=== PATIENT | female | born 1935 | race Two or more races ===

== ENCOUNTER 2021-06-03 01:55 | Inpatient (IN) | payer MEDICARE, BC ==
[2021-06-03] VITALS (17 sets, daily range): BP systolic 99–167; BP diastolic 46–115
[~2021-06-03] VITALS: Ht 165.1 cm; Wt 54.0 kg
--- NOTE | 2021-06-03 02:01 | NUR ---
PT AAOX4. BIBRA FROM HOME C/O SOB X2 DAYS. WORST TODAY. NEONATAL DOCTOR, GIVEN 5 PUFFS OF NITRO AND 10MG ALBUTEROL. PLACED IN BED 8 ON STEM PROCESSING MACHINE OPERATOR AND PULSE OX. PT NOTED TACHYPNIC AND TACHYCARDIC. ER MD AT BEDSIDE FOR EVAL AND ORDERS. RT AT BEDSIDE. PT STATED SHE DOES NOT WANT TO BE INTUBATED.
--- NOTE | 2021-06-03 02:13 | NUR ---
LINE ESTABLISHED, BLOOD WORK COLLECTED, SENT TO LAB.
[2021-06-03] MEDS ORDERED: methylPREDNISolone SOD SUCC 125 MG/2ML VIAL ONE (02:16)
--- NOTE | 2021-06-03 02:18 | NUR ---
EMT AT BEDSIDE FOR EKG
--- NOTE | 2021-06-03 02:18 | NUR ---
RT CALLED FOR BIPAP.
[2021-06-03] MEDS ORDERED: ALBUTEROL FS 2.5 MG/3 ML VIAL.NEB ONE (02:20)
[2021-06-03] MEDS ORDERED: ALBUTEROL FS 2.5 MG/0.5 ML VIAL.NEB ONE (02:21)
[2021-06-03 02:30] LABS: BASOPHILS # (AUTO) 0.1 K/uL (0.0-0.2); BASOPHILS % (AUTO) 0.5 % (0.0-2.0); EOSINOPHILS % (AUTO) 2.3 % (0.0-6.0); HEMATOCRIT 43 % (33-45); LYMPHOCYTES # (AUTO) 5.2 K/uL (0.8-4.8); LYMPHOCYTES % (AUTO) 46.1 % (20.0-44.0); MEAN CORPUSCULAR HGB CONC 33 g/dl (31.0-36.0); MEAN CORPUSCULAR VOLUME 95 fL (82-100); MONOCYTES # (AUTO) 0.8 K/uL (0.1-1.30); MONOCYTES % (AUTO) 6.8 % (2.0-12.0); NEUTROPHILS % (AUTO) 44.3 % (43.0-81.0); PLATELET COUNT (AUTO) 192 K/uL (150-450); RED BLOOD CELL COUNT(AUTO) 4.48 MIL/uL (4.0-5.2); WHITE BLOOD COUNT (AUTO) 11.4 K/uL (4.3-11.0)
[2021-06-03] MEDS ORDERED: methylPREDNISolone SOD SUCC 125 MG/2ML VIAL IV ONE (02:30)
[2021-06-03] MEDS ORDERED: IPRATROPIUM NEB FS 0.5 MG/2.5 ML AMPUL.NEB NEB ONE (02:30)
[2021-06-03] MEDS ORDERED: ALBUTEROL FS 2.5 MG/3 ML VIAL.NEB NEB ONE (02:30)
--- NOTE | 2021-06-03 02:47 | NUR ---
FREDRICKID SWABBED, SENT TO LAB.
[2021-06-03] MEDS ORDERED: IOHEXOL-350 100 ML VIAL IV ONE ×2 (02:49→13:43)
[2021-06-03] MEDS ORDERED: CT SWABBABLE VALVE TRANS SET 1 EA INFUS.SET MC ONE ×2 (02:49→13:43)
[2021-06-03] MEDS ORDERED: IV NS 0.9% 250 ML IV ONE ×2 (02:49→13:43)
[2021-06-03 02:52] LABS: BILIRUBIN,TOTAL 0.6 mg/dL (0.2-1.0); CALCIUM, SERUM 8.3 mg/dL (8.5-10.1); CREATININE 0.8 mg/dL (0.6-1.3); MAGNESIUM 2.1 mg/dL (1.8-2.4); POTASSIUM 4.7 mmol/L (3.5-5.1); TOTAL PROTEIN, SERUM 7.1 g/dL (6.4-8.2)
[2021-06-03] MEDS ORDERED: CLOP75TA15 PO (02:56)
[2021-06-03] MEDS ORDERED: AMLO2.5T2 PO (02:57)
[2021-06-03] MEDS ORDERED: SIMV40TA2 PO (02:57)
[2021-06-03] MEDS ORDERED: LABE100T5 PO (02:57)
--- NOTE | 2021-06-03 03:23 | NUR ---
RADIOLOGY UNABLE TO COMPLETE CT SCAN DUE TO PT UNABLE TO STAY LAYING FLAT.
[2021-06-03] MEDS ORDERED: FUROSEMIDE 40 MG/4 ML VIAL ONE (03:28)
[2021-06-03] MEDS ORDERED: ASPIRIN 81 MG TAB.CHEW ONE (03:29)
[2021-06-03] MEDS ORDERED: ASPIRIN 81 MG TAB.CHEW PO ONE (03:30)
[2021-06-03] MEDS ORDERED: FUROSEMIDE 40 MG/4 ML VIAL IV ONE (03:30)
[2021-06-03] MEDS ORDERED: LORAZEPAM INJ 2 MG/ML VIAL ONE (03:52)
--- NOTE | 2021-06-03 03:55 | NUR ---
PT STATED "I WOULD LIKE SOMETHING TO CALM ME DOWN" I DID NOTIFY ER MD, ATIVAN 0.5MG IVP XNOW VERBAL ORDER RECIEVED.
[2021-06-03] MEDS ORDERED: LORAZEPAM INJ 2 MG/ML VIAL IV ONE (04:00)
[2021-06-03 05:04] LABS: BILIRUBIN,URINE Negative (NEGATIVE); COLOR,URINE YELLOW (YELLOW); LEUKOCYTE ESTERASE ,URINE Negative (NEGATIVE); NITRITE, URINE Negative (NEGATIVE); PROTEIN,URINE 100 mg/dl (NEGATIVE); UGLUCOSE Negative (NEGATIVE); UROBILINOGEN,URINE 0.2 EU/dL (0.2)
--- NOTE | 2021-06-03 05:05 | NUR ---
URINE SPECIMEN COLLECTED AND SENT TO LAB
--- NOTE | 2021-06-03 05:09 | NUR ---
PT AAOX4, REMAINS ON BIPAP, ON MONITOR, AND PULSE OX. AWARE SHE WILL BE ADMITTED. RESTING COMFORTABLY.
--- NOTE | 2021-06-03 05:10 | NUR ---
PT WAS ABLE TO URINATE. STATED SHE FEELS BETTER,
--- NOTE | 2021-06-03 05:28 | NUR ---
RT AT BEDSIDE. TOOK PT OFF BIPAP. PT NOW ON 2L NC. SAT 94%
[2021-06-03 05:31] LABS: BACTERIA,URINE None seen /HPF (None Seen); SQUAMOUS EPITHELIAL CELL,UR Few /HPF (None Seen); WBC,URINE 0-2 /HPF (0-3)
--- NOTE | 2021-06-03 05:42 | NUR ---
STAN WOOD TALKING TO XIOMARA GUTIERREZ [facility] REGARDING PT ADMISSION.
[2021-06-03] MEDS ORDERED: NITROGLYCERIN 0.4 MG/TAB BOTTLE SL PRN (06:00)
[2021-06-03] MEDS ORDERED: hydrALAZINE HCL IV 20 MG VIAL IV PRN (06:00)
--- NOTE | 2021-06-03 06:17 | NUR ---
257 PER RN FUNDER.
[2021-06-03] MEDS: ENOXAPARIN SODIUM 40 MG/0.4 ML DISP.SYRIN SQ SCH (07:00)
--- NOTE | 2021-06-03 07:00 | NUR ---
RECEIVED REPORT FROM ANA PAULA RIVERA FOR JUN. PT IS AAOX4, NOT IN RESPIRATORY DISTRESS, ON O2 AT 3LPM VIA NC 02 SAT AT 96%, V/S STABLE, KEPT RESTED AND COMFORTABLE. WILL CONTINUE TO MONITOR.
[2021-06-03] MEDS ORDERED: ENOXAPARIN SODIUM 40 MG/0.4 ML DISP.SYRIN SQ ONE (07:10)
[2021-06-03] MEDS: CEFTRIAXONE 1 G in IV D5W 50 ML IV SCH (07:20)
[2021-06-03] MEDS ORDERED: UMEC1BLS IH (07:24)
[2021-06-03] MEDS ORDERED: DIAZ5TAB4 PO (07:24)
--- NOTE | 2021-06-03 08:06 | NUR ---
REPORT GIVEN TO ANA PAULA NUNEZ FOR JUN.
[2021-06-03] MEDS: ALBUTEROL FS 2.5 MG/0.5 ML VIAL.NEB NEB SCH ×3 (08:29→20:02)
[2021-06-03] MEDS: IPRATROPIUM NEB FS 0.5 MG/2.5 ML AMPUL.NEB NEB SCH ×3 (08:29→20:02)
--- NOTE | 2021-06-03 08:30 | NUR ---
RN NOTE RECEIVED REPORT FROM RN DORYS IN ER. PATIENT IS CURRENTLY ON 3L NC WITH NO SIGNS OF DISTRESS. PATIENT IS AOX4. WILL CONTINUE TO MONITOR.
[2021-06-03] MEDS: ASPIRIN 81 MG TAB.CHEW PO SCH (09:00)
[2021-06-03] MEDS ORDERED: FUROSEMIDE 40 MG/4 ML VIAL IV SCH (09:00)
--- NOTE | 2021-06-03 09:14 | NUR ---
Patient unable to lay flat RN Jewel will call when PT ready
[2021-06-03] MEDS: methylPREDNISolone SOD SUCC 40 MG/ML VIAL IV SCH ×2 (09:28→16:04)
[2021-06-03 10:57] LABS: THYROID STIMULATING HORMONE 1.005 uIU/mL (0.358-3.74)
[2021-06-03] MEDS ORDERED: DEXTROSE 50%-WATER 50 ML DISP.SYRIN IV PRN (13:00)
[2021-06-03] MEDS: LORAZEPAM 0.5 MG TABLET PO PRN ×2 (13:49→21:44)
--- NOTE | 2021-06-03 14:00 | NUR ---
RN NOTE Back from CT Pulmonary Angiogram in stable condition. Currently satting at 98% on 2 liters.
[2021-06-03] MEDS ORDERED: IPRATROPIUM NEB FS 0.5 MG/2.5 ML AMPUL.NEB NEB SCH (15:30)
[2021-06-03] MEDS: INSULIN REGULAR, HUMAN 100 UNIT/ML 3 ML VIAL SQ PRN ×2 (17:12→22:00)
[2021-06-03] MEDS: BLOOD SUGAR DIAGNOSTIC 1 EACH STRIP IN SCH ×2 (17:39→21:58)
--- NOTE | 2021-06-03 18:58 | NUR ---
RN CLOSING NOTES PT IS AOX4, ON 2 LITERS OF O2 VIA NC, STATES BREATHING IS IMPROVING. HAD CTA PROCEDURE WITH NO CHANGE IN CONDITION. LEFT HAND AND RIGHT UPPER ARM IV LINE PATENT WITH CLEAN DRESSING. B/S 152 MG/DL, HAD DINNER. CONTINENT OF B/B WITH USAGE OF BEDPAN OUPUT OF 1320CC. SAFETY MEASURES IMPLEMENTED BED LOCKED IN LOWEST POSITION, SIDE RAILS UP X 3, CALL LIGHT WITHIN REACH. WILL ENDORSE TO INCOMING SHIFT.
[2021-06-03] MEDS ORDERED: ALBUTEROL FS 2.5 MG/0.5 ML VIAL.NEB NEB SCH (19:30)
--- NOTE | 2021-06-03 19:45 | NUR ---
ICU/DROP CREW LABORER RECEIVED REPORT FROM DAY NURSE. SEE FLOWSHEET FOR ASSESSMENT. THERE IS NO IVF'S TO ADDRESS ON THIS PT. PT IS CURRENTLY WITH 2 LITERS VIA N/C WITH SATURATION AT 97%. PT IS ALERT X4. PT IS ABLE TO ASK FOR A BED ESQUEDA. CALL LIGHT WITHIN REACH. NO DISTRESS SEEN.
[2021-06-03] MEDS ORDERED: ATORVASTATIN 10 MG TABLET PO SCH (22:00)
--- NOTE | 2021-06-03 22:00 | NUR ---
ICU/PRINTMAKER PT WAS GIVEN ATIVAN 0.5MG PO FOR SLEEP PER PT' REQUEST. WILL CONTINUE TO MONITOR THIS PT.
[2021-06-04] VITALS (16 sets, daily range): BP systolic 88–143; BP diastolic 47–97
--- NOTE | 2021-06-04 01:15 | NUR ---
ICU/TILE ERECTOR PT APPEARS TO BE ASLEEP. NO ACUTE DISTRESS SEEN AT THIS TIME. CALL LIGHT IS WITHIN REACH.
[2021-06-04 04:43] LABS: HEMATOCRIT 40 % (33-45); HEMOGLOBIN 13.3 g/dL (11.5-14.8); LYMPHOCYTES # (AUTO) 0.9 K/uL (0.8-4.8); LYMPHOCYTES % (AUTO) 8.2 % (20.0-44.0); MEAN CORPUSCULAR HGB CONC 34 g/dl (31.0-36.0); MEAN CORPUSCULAR VOLUME 93 fL (82-100); MONOCYTES # (AUTO) 0.8 K/uL (0.1-1.30); NEUTROPHILS # (AUTO) 9.7 K/uL (1.8-8.9); NEUTROPHILS % (AUTO) 84.8 % (43.0-81.0); PLATELET COUNT (AUTO) 185 K/uL (150-450); RED BLOOD CELL COUNT(AUTO) 4.26 MIL/uL (4.0-5.2); WHITE BLOOD COUNT (AUTO) 11.4 K/uL (4.3-11.0)
[2021-06-04 05:08] LABS: ALBUMIN 3.6 g/dL (3.4-5.0); BILIRUBIN,TOTAL 0.6 mg/dL (0.2-1.0); CALCIUM, SERUM 8.3 mg/dL (8.5-10.1); CREATININE 0.6 mg/dL (0.6-1.3); MAGNESIUM 2.1 mg/dL (1.8-2.4); PHOSPHORUS 4.8 mg/dL (2.5-4.9); POTASSIUM 3.8 mmol/L (3.5-5.1); TOTAL PROTEIN, SERUM 6.6 g/dL (6.4-8.2)
[2021-06-04 05:27] LABS: THYROID STIMULATING HORMONE 0.458 uIU/mL (0.358-3.74)
[2021-06-04] MEDS: CEFTRIAXONE 1 G in IV D5W 50 ML IV SCH (05:28)
--- NOTE | 2021-06-04 07:15 | NUR ---
WOUND CARE CONSULT: PT SEEN FOR FEW SPOTS ON LEFT ARM AND ON THIGH, UNKNOWN ETIOLOGY. PT STATES WAS DIGGING IN DIRT AT HOME AND BUILDING A WALL. NO ERYTHEMA OR DRAINAGE NOTED. DEFER TO PMD. WILL SEE PRN.
[2021-06-04] MEDS: ALBUTEROL FS 2.5 MG/0.5 ML VIAL.NEB NEB SCH ×3 (07:39→19:46)
[2021-06-04] MEDS: IPRATROPIUM NEB FS 0.5 MG/2.5 ML AMPUL.NEB NEB SCH ×3 (07:39→19:46)
--- NOTE | 2021-06-04 07:45 | NUR ---
INDUSTRIAL ECONOMICS PROFESSOR OPENING NOTES Patient is alert and oriented. Breathing even and unlabored. On 2 lpm via n/c with 02 saturation of 98%. No c/o pain or discomfort. Patient provided morning care. HOB kepet elevated. Wound consult being done while endorsement was being given. Call light with in reach. Will continue to monitor.
[2021-06-04] MEDS: BLOOD SUGAR DIAGNOSTIC 1 EACH STRIP IN SCH ×4 (07:53→21:42)
[2021-06-04] MEDS: INSULIN REGULAR, HUMAN 100 UNIT/ML 3 ML VIAL SQ PRN (07:53)
--- NOTE | 2021-06-04 08:10 | NUR ---
Patient SBP 103 AND HR OF 113. Informed MD Jennings if patient to be given diltiazem . Per md to recheck manually. Manually BP checked and noted with BP of 118/78. Medication given.
[2021-06-04] MEDS: methylPREDNISolone SOD SUCC 40 MG/ML VIAL IV SCH ×2 (08:12→17:00)
[2021-06-04] MEDS: ASPIRIN 81 MG TAB.CHEW PO SCH (08:13)
[2021-06-04] MEDS: ENOXAPARIN SODIUM 40 MG/0.4 ML DISP.SYRIN SQ SCH (08:15)
[2021-06-04] MEDS: DILTIAZEM HCL CD 240 MG PO SCH (08:25)
--- NOTE | 2021-06-04 08:45 | NUR ---
Patient transferred to [address] [place] [id number] AT 8:35, report given to marty GOSS. Patient transferred on tele monitor and portable 02. Vitals WN
--- NOTE | 2021-06-04 09:00 | NUR ---
BI ANALYST NOTES RECEIVING PT A/O X4. PT ARRIVED ON GURNEY AND WAS TRANSFERRED TO BED AND COMFORT MEASURES PROVIDED. MAINTAINED ON MODERATE TO HIGH BACK REST. PT HAS NO C/O PAIN OR DISCOMFORT AT THIS TIME. ON OXYGEN AT 2-3LPM VIA NASAL CANULA SATURATING AT 96% WITH NO SIGNS OF RESPIRATORY DISTRESS WITH EQUAL AND UNLABORED BREATHING. PATIENT WITH IV ACCESS ON RIGHT AC G 18, INTACT AND PATENT. SAFETY MEASURES MAINTAINED. BED IN LOWEST LOCKED POSITION, HOB ELEVATED, SIDE RAILS UP X2. CALL LIGHT AND TABLE WITHIN REACH. WILL CONTINUE TO MONITOR PATIENT.
--- NOTE | 2021-06-04 19:00 | NUR ---
PRODUCTION COST ESTIMATOR CLOSING NOTES RECEIVING PT A/O X4. PT ARRIVED ON GURNEY AND WAS TRANSFERRED TO BED AND COMFORT MEASURES PROVIDED. MAINTAINED ON MODERATE TO HIGH BACK REST. PT HAS NO C/O PAIN OR DISCOMFORT AT THIS TIME. ON OXYGEN AT 3LPM VIA NASAL CANULA SATURATING AT 96% WITH NO SIGNS OF RESPIRATORY DISTRESS WITH EQUAL AND UNLABORED BREATHING. PATIENT WITH IV ACCESS ON RIGHT AC G18, INTACT AND PATENT. SAFETY MEASURES MAINTAINED. BED IN LOWEST LOCKED POSITION, HOB ELEVATED, SIDE RAILS UP X2. CALL LIGHT AND TABLE WITHIN REACH. WILL ENDORSE TO NEXT SHIFT FOR CONTINUITY OF CARE.
[2021-06-04] MEDS: LORAZEPAM 0.5 MG TABLET PO PRN (21:41)
[2021-06-05] VITALS: BP 125/74
[2021-06-05 04:00] VITALS: BP 112/56
[2021-06-05] MEDS: BLOOD SUGAR DIAGNOSTIC 1 EACH STRIP IN SCH ×4 (05:43→22:31)
[2021-06-05] MEDS: CEFTRIAXONE 1 G in IV D5W 50 ML IV SCH (06:25)
[2021-06-05 06:26] LABS: HEMATOCRIT 42 % (33-45); HEMOGLOBIN 14.1 g/dL (11.5-14.8); LYMPHOCYTES # (AUTO) 1.1 K/uL (0.8-4.8); MEAN CORPUSCULAR HGB CONC 33 g/dl (31.0-36.0); MEAN CORPUSCULAR VOLUME 94 fL (82-100); MONOCYTES # (AUTO) 0.6 K/uL (0.1-1.30); MONOCYTES % (AUTO) 5.7 % (2.0-12.0); NEUTROPHILS # (AUTO) 9.5 K/uL (1.8-8.9); NEUTROPHILS % (AUTO) 84.3 % (43.0-81.0); PLATELET COUNT (AUTO) 198 K/uL (150-450); RED BLOOD CELL COUNT(AUTO) 4.49 MIL/uL (4.0-5.2); WHITE BLOOD COUNT (AUTO) 11.3 K/uL (4.3-11.0)
--- NOTE | 2021-06-05 06:43 | NUR ---
ROASTERMAN NOTES AWAKE & RESPONSIVE. NOT IN ANY DISTRESS. NO SOB NOTED. DENIES ANY PAIN OR DISCOMFORT AT THIS TIME. ON TELE SR @ 100 WITH OCC PVCS WITH IV-HL PATENT & INTACT. MONITORED ACCORDINGLY. CALL LIGHT WITHIN REACH. BED IN LOWEST POSITION. SR UP X 2 FOR SAFETY. WILL ENDORSE TO NEXT SHIFT.
[2021-06-05 06:47] LABS: ALBUMIN 3.8 g/dL (3.4-5.0); BILIRUBIN,TOTAL 0.7 mg/dL (0.2-1.0); CALCIUM, SERUM 8.1 mg/dL (8.5-10.1); CREATININE 0.7 mg/dL (0.6-1.3); MAGNESIUM 2.7 mg/dL (1.8-2.4); PHOSPHORUS 5.2 mg/dL (2.5-4.9); POTASSIUM 4.2 mmol/L (3.5-5.1); TOTAL PROTEIN, SERUM 6.8 g/dL (6.4-8.2)
--- NOTE | 2021-06-05 07:23 | NUR ---
SUPERVISOR OPEN HEARTH STOCKYARD OPENING NOTES RECEIVED PT IN BED AWAKE, A/O X4. ABLE TO VERBALIZED NEEDS, DENIES PAIN OR ANY DISCOMFORTS AT THIS TIME. ON 02 VIA N/C AT 3LPM VIA NASAL CANULA, TOLERATING WELL WITH NO SOB NOTED. IV ACCESS ON RIGHT AC G #18 INTACT, PATENT AND FLUSHES WELL. TELE-MONITOR CURRENTLY SHOWS NSR, HR ON THE 80'S, NO C/O OF CARDIAC DISTRESS VOICED AT THIS TIME. SAFETY MEASURES IN PLACE: BED IN LOWEST LOCKED POSITION, HOB ELEVATED, SIDE RAILS UP X2. CALL LIGHT AND TABLE WITHIN REACH. WILL CONTINUE TO MONITOR PT ACCORDINGLY.
[2021-06-05 08:00] VITALS: BP 104/55
[2021-06-05] MEDS: IPRATROPIUM NEB FS 0.5 MG/2.5 ML AMPUL.NEB NEB SCH ×3 (08:02→19:35)
[2021-06-05] MEDS: ALBUTEROL FS 2.5 MG/0.5 ML VIAL.NEB NEB SCH ×3 (08:02→19:35)
[2021-06-05] MEDS: ASPIRIN 81 MG TAB.CHEW PO SCH (08:22)
[2021-06-05] MEDS: methylPREDNISolone SOD SUCC 40 MG/ML VIAL IV SCH (08:22)
[2021-06-05] MEDS: ENOXAPARIN SODIUM 40 MG/0.4 ML DISP.SYRIN SQ SCH (08:25)
[2021-06-05] MEDS: DILTIAZEM HCL CD 240 MG PO SCH (09:00)
[2021-06-05] MEDS: AMLODIPINE BESYLATE 2.5 MG TABLET PO SCH (10:00)
[2021-06-05] MEDS ORDERED: DIAZEPAM 5 MG TABLET PO PRN (10:00)
[2021-06-05] MEDS ORDERED: LABETALOL HCL (100MG) 100 MG TABLET PO SCH (10:00)
[2021-06-05] MEDS: CLOPIDOGREL BISULFATE 75 MG TABLET PO SCH (10:34)
[2021-06-05] MEDS: INSULIN REGULAR, HUMAN 100 UNIT/ML 3 ML VIAL SQ PRN ×2 (11:24→17:15)
--- NOTE | 2021-06-05 11:25 | NUR ---
RN NOTES PT WITH BLOOD SUGAR OF 188 MG/DL. REFUSED INSULIN COVERAGE. WILL CONTINUE TO MONITOR
[2021-06-05 16:00] VITALS: BP 132/84
--- NOTE | 2021-06-05 17:15 | NUR ---
RN NOTES PT WITH BLOOD SUGAR OF 135 MG/DL THIS AFTERNOON. REFUSED INSULIN COVERAGE STATED THAT SHE'S NOT DIABETIC AND INSULIN MAKES HER SHAKY. WILL CONTINUE TO MONITOR
--- NOTE | 2021-06-05 18:35 | NUR ---
MS RN CLOSING PT IN BED AWAKE AND RESTING AT SEMI-NELSON'S POSITION. A/O X4. ABLE TO VERBALIZED NEEDS. ON 02 VIA N/C AT 2LPM VIA N/C, TOLERATING WELL WITH NO SOB NOTED. IV ACCESS ON RIGHT AC G #18 INTACT, PATENT AND FLUSHES WELL. ALL NEEDS AND CARE ATTENDED WELL. SAFETY MEASURES KEPT IN PLACE: BED IN LOWEST LOCKED POSITION with SIDE-RAILS UP X2. CALL LIGHT AND BEDSIDE TABLE WITHIN EASY REACH OF PT. WILL ENDORSE JUN TO DRIER TENDER NURSE.
--- NOTE | 2021-06-05 19:33 | NUR ---
MS GOSS Opening Notes Patient was seen awake resting in bed. Patient's alert and oriented x2. Patient's on 2L of oxygen/minute via nasal cannula with no respiratory distress needed. Patient has a saline lock on his RAC g#18. Safety measures are kept in place: Bed locked, bed alarm on, side rails up x3, and call light within reach of the patient. Patient's in no acute distress at this time. Will continue to monitor the patient. Addendum: 06/05/21 at 1939 by BERNIE LAU RN Patient's alert and oriented x4.
[2021-06-05 20:00] VITALS: BP 145/85
[2021-06-05] MEDS: LORAZEPAM 0.5 MG TABLET PO PRN (22:09)
--- NOTE | 2021-06-05 22:32 | NUR ---
MS RN Notes Patient's blood sugar at 2222 was 140 mg/dL. Patient refused her ordered insulin (2 units). Risks have been explained to the patient. Will continue to monitor the patient.
[2021-06-06] MEDS: CEFTRIAXONE 1 G in IV D5W 50 ML IV SCH (05:20)
--- NOTE | 2021-06-06 06:15 | NUR ---
MS RN Notes Patient's blood sugar at 0611 was 109 mg/dL. Will continue to monitor the patient.
[2021-06-06] MEDS: BLOOD SUGAR DIAGNOSTIC 1 EACH STRIP IN SCH ×3 (06:31→16:40)
--- NOTE | 2021-06-06 06:38 | NUR ---
MS RN Closing Notes Patient was seen sleeping in bed. Patient's alert and oriented x4. Patient's on 2L of oxygen/minute via nasal cannula with no respiratory distress needed. Patient has a saline lock on her RAC g#18, which is currently intact, patent, and flushing well. Safety measures are kept in place: Bed locked, bed alarm on, side rails up x3, and call light within reach of the patient. Patient's in no acute distress at this time. Will endorse care to the day shift nurse.
--- NOTE | 2021-06-06 07:35 | NUR ---
MS RN OPENING NOTES RECEIVED PATIENT IN BED, AWAKE, A/O X4. PATIENT ON OXYGEN THERAPY AT 2 LPM VIA NASAL CANNULA; BREATHING EVEN AND UNLABORED, NO SOB PRESENT. NO COMPLAINS OF PAIN AT THIS TIME. IV ACCESS ON RAC G # 18; SL. SAFETY PRECAUTIONS IN PLACE; BED IN LOW POSITION AND LOCKED, RAILS UP X2, CALL LIGHT WITHIN REACH. WILL CONTINUE TO MONITOR PATIENT.
[2021-06-06] MEDS: IPRATROPIUM NEB FS 0.5 MG/2.5 ML AMPUL.NEB NEB SCH ×3 (08:02→14:03)
[2021-06-06] MEDS: ALBUTEROL FS 2.5 MG/0.5 ML VIAL.NEB NEB SCH ×3 (08:02→14:03)
[2021-06-06 08:07] VITALS: BP 146/76
[2021-06-06] MEDS: ENOXAPARIN SODIUM 40 MG/0.4 ML DISP.SYRIN SQ SCH (09:00)
[2021-06-06] MEDS ORDERED: methylPREDNISolone SOD SUCC 40 MG/ML VIAL IV SCH (09:00)
[2021-06-06] MEDS: ASPIRIN 81 MG TAB.CHEW PO SCH (09:01)
[2021-06-06] MEDS: DILTIAZEM HCL CD 240 MG PO SCH (09:02)
[2021-06-06] MEDS: CLOPIDOGREL BISULFATE 75 MG TABLET PO SCH (09:04)
[2021-06-06] MEDS: AMLODIPINE BESYLATE 2.5 MG TABLET PO SCH (09:05)
[2021-06-06] MEDS ORDERED: PRED20TA PO (12:53)
[2021-06-06] MEDS ORDERED: DILT240C88 PO (12:53)
[2021-06-06] MEDS ORDERED: ASPI-1169 PO (12:53)
--- NOTE | 2021-06-06 15:21 | NUR ---
MS RN NOTES PATIENT SATURATING 92 TO 94% ON ROOM AIR. WHILE PATIENT WAS AMBULATING WITHOUT OXYGEN AROUND THE MARI SHE DESATURATED TO 87% BACK IN THE ROOM, AFTER OXYGEN WAS APPLIED, SHE WAS ABLE TO AMBULATE AND O2 BACK TO 92%
[2021-06-06 16:55] VITALS: BP 142/78
--- NOTE | 2021-06-06 17:04 | NUR ---
MS JAVA SECURITY ENGINEER NOTE PATIENT DISCHARGED HOME IN MEDICALLY STABLE CONDITION. PATIENT A/O X4 AND ABLE TO MAKE NEEDS KNOWN. ALL DISCHARGE PAPERWORK READY AND TEACHING PROVIDED TO PATIENT REGARDING PHYSICIAN INSTRUCTIONS TO CONTINUE HER PRESCRIBED COURSE OF MEDICATIONS AND F/U WITH PHYSICIAN IN A WEEK. PATIENT VERBALIZED UNDERSTANDING. BELONGINGS ACCOUNTED FOR AND FORM SIGNED WELL. IV ACCESS WAS REMOVED WITH THE WRISTBAND PRIOR PATIENT LEFT THE FLOOR. PATIENT LEFT THE UNIT AT 1655 ACCOMPANIED BY RN. PATIENT LEFT THE HOSPITAL IN A PRIVATE CAR.
[2021-06-06] MEDS ORDERED: SIMVASTATIN 10 MG TABLET PO SCH (22:00)
[2021-06-06] MEDS ORDERED: SIMVASTATIN 40 MG TABLET PO SCH (22:00)
== END 2021-06-06 17:15 | disposition home or self-care (01) | DRG 280 ==
LOC: ER 01:57 → ICU 06:25 → TELE 06-04 10:43 → MED 06-05 15:53
PROVIDERS: ADMIT Registered Nurse
DX: I11.0 Hypertensive heart disease with heart failure (principal); J96.01 Acute respiratory failure with hypoxia; I21.A1 Myocardial infarction type 2; J44.1 Chronic obstructive pulmonary disease with (acute) exacerbation; I47.1 Supraventricular tachycardia; I16.0 Hypertensive urgency; R74.01 Elevation of levels of liver transaminase levels; C73 Malignant neoplasm of thyroid gland; Z87.891 Personal history of nicotine dependence; Z85.21 Personal history of malignant neoplasm of larynx; I25.10 Atherosclerotic heart disease of native coronary artery without angina pectoris; Z20.822 Contact with and (suspected) exposure to COVID-19; I50.23 Acute on chronic systolic (congestive) heart failure
CPT/HCPCS: 36415; 71045-TC; 71046; 80053-TC; 80061-TC; 81001; 82962-TC; 83735-TC; 83880; 84100-TC; 84439-TC; 84443-TC; 84484-TC; 85025-TC; 87081-TC; 93307-TC; 94762-TC; 94799-TC; 97116-TC; 97530-TC; C9803; G0378; J0696; J1650; J1815; J1940; J2060; J2920; J2930; J7050; J7060; Q9967